=== PATIENT | male | born 1990 | race Caucasian/White ===

== ENCOUNTER 2017-06-09 01:57 | Emergency (ER) | payer SELFPAY | END 2017-06-09 03:48 | disposition home or self-care (01) | LOC: E/R 01:57 | DX: F10.129 Alcohol abuse with intoxication, unspecified (principal); R40.2142 Coma scale, eyes open, spontaneous, at arrival to emergency department; R40.2242 Coma scale, best verbal response, confused conversation, at arrival to emergency department; R40.2362 Coma scale, best motor response, obeys commands, at arrival to emergency department | CPT/HCPCS: 99282 ==